=== PATIENT | female | born 1950 | race Caucasian/White ===

== ENCOUNTER 2019-07-14 09:57 | Day surgery (SDC) | payer MEDICARE, OTHER ==
[2019-07-14] VITALS (9 sets, daily range): BP systolic 101–139; BP diastolic 53–66
[~2019-07-14] VITALS: Ht 157.5 cm; Wt 129.4 kg
[2019-07-14] MEDS ORDERED: diphenhydrAMINE 25mg capsule PO PRN (10:35)
[2019-07-14] MEDS ORDERED: normal saline 1,000 ML IV SCH (10:35)
[2019-07-14] MEDS ORDERED: DULO60CA45 PO (10:58)
[2019-07-14] MEDS ORDERED: MONT10TA26 PO (10:58)
[2019-07-14] MEDS ORDERED: FURO-150 PO (10:58)
[2019-07-14] MEDS ORDERED: OMEG1CAP13 PO (10:58)
[2019-07-14] MEDS ORDERED: LEVO112T5 PO (10:58)
[2019-07-14] MEDS ORDERED: IPRA3AMP31 IH (10:58)
[2019-07-14] MEDS ORDERED: FLUT1DIS20 INH (10:58)
[2019-07-14] MEDS ORDERED: Trazodone PO (10:58)
[2019-07-14] MEDS ORDERED: CHOL200077 PO (10:58)
[2019-07-14] MEDS ORDERED: MAGN250T11 PO (10:58)
[2019-07-14] MEDS ORDERED: Lutein PO (10:58)
[2019-07-14] MEDS ORDERED: IPRA4AER IH (10:58)
[2019-07-14] MEDS ORDERED: POTA8CAP20 PO (10:58)
[2019-07-14] MEDS ORDERED: Ibuprofen PO (10:58)
[2019-07-14 11:13] LABS: BASOPHILS % (AUTO) 0.8 % (0-1); EOSINOPHILS # (AUTO) 0.1 X10'3 (0-0.9); EOSINOPHILS % (AUTO) 2.5 % (0-6); HEMATOCRIT 36.4 % (35.0-45.0); HEMOGLOBIN 12.1 g/dl (12.0-16.0); LYMPHOCYTES # (AUTO) 1.2 X10'3 (1.1-4.8); LYMPHOCYTES % (AUTO) 22.8 % (21-51); MEAN CORPUSCULAR HEMOGLOBIN 28.8 PG (27.0-31.0); MEAN CORPUSCULAR HGB CONC 33.3 g/dL (33.0-36.5); MEAN CORPUSCULAR VOLUME 86.5 FL (78-98); MEAN PLATELET VOLUME 8.7 FL (7.4-10.4); MONOCYTES # (AUTO) 0.4 X10'3 (0-0.9); MONOCYTES % (AUTO) 7.5 % (2-12); NEUTROPHILS # (AUTO) 3.4 X10'3 (1.8-7.7); NEUTROPHILS % (AUTO) 66.4 % (42-75); PLATELET COUNT 222 X10'3 (140-440); WHITE BLOOD COUNT 5.1 X10'3 (4.5-11.0)
[2019-07-14 11:22] LABS: ALBUMIN 3.5 G/DL (3.4-5.0); ANION GAP 7 (8-16); BLOOD UREA NITROGEN 11 MG/DL (7-18); BUN/CREATININE RATIO 11.3 (6.6-38.0); CALCIUM 8.8 MG/DL (8.5-10.1); CHLORIDE 108 MMOL/L (99-107); CREATININE 0.97 MG/DL (0.40-0.90); GLUCOSE 116 MG/DL (70-104); MAGNESIUM 1.8 MG/DL (1.5-2.4); POTASSIUM 4.3 MMOL/L (3.5-5.1); SODIUM 142 MMOL/L (135-145); TOTAL CARBON DIOXIDE 26.8 MMOL/L (24-32); eGFR 57 ML/MIN
[2019-07-14] MEDS ORDERED: midazolam 2 mg/2 ml injection ONE ×4 (12:08→12:57)
[2019-07-14] MEDS ORDERED: heparin 1,000unit/ml 10ml vial 10 ML ONE (12:08)
[2019-07-14] MEDS ORDERED: LIDOcaine 1% (10mg/ml)w/preservative injection 20ml MDV ONE (12:08)
[2019-07-14] MEDS ORDERED: iohexol 350 MG/ML 50ML vial IV ONE (12:08)
[2019-07-14] MEDS ORDERED: fentaNYL/PF 50MCG/1 ML 2ML syringe ONE ×2 (12:08→12:51)
[2019-07-14] MEDS ORDERED: iohexol 350MG/ML 100ml bottle IV ONE (12:09)
[2019-07-14] MEDS ORDERED: nitroGLYCERIN-Tridil 50MG/D5W 250 ML IV ONE (12:28)
[2019-07-14] MEDS ORDERED: verapamil 2.5 mg/ml inj IV ONE (12:28)
[2019-07-14] MEDS ORDERED: proCHLORperazine 10 MG/2 ml inj ONE (12:47)
--- NOTE | 2019-07-14 18:41 | NUR ---
VASC BAND REMOVED. CLEANSED SITE WITH NS/AND STERILE GAUZE. NO OOZING FROM SITE. NEW DRSG APPLIED, STERILE 2X2 and tegaderm. Supported with folded 4x4 and rodrigo pt aware that outer drsg may be removed or adjusted for comfort. not required. Addendum: 07/14/19 at 1849 by Ita Aguirre RN Amended: Links added.
== END 2019-07-14 16:35 | disposition home or self-care (01) ==
LOC: SSTAY O 09:57
PROVIDERS: ATTEND Internal Medicine Cardiovascular Disease
DX: R94.39 Abnormal result of other cardiovascular function study (principal); E03.9 Hypothyroidism, unspecified; K21.9 Gastro-esophageal reflux disease without esophagitis; J44.9 Chronic obstructive pulmonary disease, unspecified; I47.1 Supraventricular tachycardia; G47.30 Sleep apnea, unspecified; F32.9 Major depressive disorder, single episode, unspecified; E66.01 Morbid (severe) obesity due to excess calories; Z68.43 Body mass index [BMI] 50.0-59.9, adult; Z90.710 Acquired absence of both cervix and uterus; Z98.890 Other specified postprocedural states; Z87.891 Personal history of nicotine dependence; Z82.49 Family history of ischemic heart disease and other diseases of the circulatory system
CPT/HCPCS: 36415; 80048; 83735; 85025; 85610; 93005; 93458; 99152; 99153; C1769; C1894; J0780; J1644; J2001; J2250; J3010; Q0163; Q9967; A4620; J3490

== ENCOUNTER 2023-03-19 06:12 | Day surgery (SDC) | payer MEDICARE, OTHER ==
[2023-03-12 10:58] LABS: BASOPHILS % (AUTO) 0.6 % (0-1); EOSINOPHILS # (AUTO) 0.1 X10'3 (0-0.9); EOSINOPHILS % (AUTO) 2.4 % (0-6); LYMPHOCYTES # (AUTO) 1.3 X10'3 (1.1-4.8); MEAN CORPUSCULAR HEMOGLOBIN 29.3 PG (27.0-31.0); MEAN CORPUSCULAR HGB CONC 32.7 g/dL (33.0-36.5); MEAN CORPUSCULAR VOLUME 89.6 FL (78-98); MONOCYTES # (AUTO) 0.5 X10'3 (0-0.9); MONOCYTES % (AUTO) 7.8 % (2-12); NEUTROPHILS # (AUTO) 4.1 X10'3 (1.8-7.7); NEUTROPHILS % (AUTO) 68.2 % (42-75); PRE OP HEMATOCRIT 38.1 % (35.0-45.0); PRE OP HEMOGLOBIN 12.4 g/dL (12.0-16.0); PRE OP PLATELET COUNT 235 X10'3 (140-440); RED BLOOD COUNT 4.25 X10'6 (4.20-5.60); RED CELL DISTRIBUTION WIDTH 14.6 % (11.5-14.5)
[2023-03-12 11:06] LABS: ALBUMIN 3.6 G/DL (3.4-5.0); ALBUMIN/GLOBULIN RATIO 1.1 (1.1-1.5); ALKALINE PHOSPHATASE 66 IU/L (46-116); BLOOD UREA NITROGEN 18 MG/DL (7-18); BUN/CREATININE RATIO 16.1 (10.0-20.0); CALCIUM 8.9 MG/DL (8.5-10.1); CHLORIDE 103 MMOL/L (99-107); CREATININE 1.12 MG/DL (0.40-0.90); PRE OP ALT 32 U/L (30-65); PRE OP ANION GAP 2 (8-16); PRE OP AST 31 U/L (10-37); PRE OP BILIRUB, TOTAL 0.3 MG/DL (0.0-1.0); PRE OP GLUCOSE 131 MG/DL (70-104); PRE OP POTASSIUM 4.6 MMOL/L (3.4-5.1); PRE OP SODIUM 138 MMOL/L (135-145); TOTAL CARBON DIOXIDE 33.4 MMOL/L (24-32); TOTAL PROTEIN 6.9 G/DL (6.4-8.2); eGFR 48 ML/MIN
[2023-03-19] VITALS (7 sets, daily range): BP systolic 122–162; BP diastolic 55–79; PULSE 63–76; RESP 13–16; TEMP 98.8; O2SAT 93–100
[~2023-03-19] VITALS: Ht 157.5 cm; Wt 129.8 kg
[~2023-03-19 06:12] MED LIST: DULO60CA59 PO; FLUT1DIS20 INH; FURO-150 PO; IPRA3AMP31 IH; LEVO112T5 PO; MONT-40 PO; POTA8CAP20 PO; TIOT4MIS3 PO; Trazodone PO; albuterol 2.5 MG/3 ML nebule NEB ONE; clindamycin-Cleocin 900mg/D5W 50 ML IV ONE; famotidine 20mg tablet PO ONE; ringers solution, lacted 1,000 ML IV SCH
[2023-03-19] MEDS ORDERED: ringers solution, lacted 1,000 ML IV SCH (07:35)
[2023-03-19] MEDS ORDERED: acetaminophen 1,000mg/100ml IV 100 ML IV PRN (07:35)
[2023-03-19] MEDS ORDERED: morphine 4 MG/ML inj SYRINge IV PRN (07:35)
[2023-03-19] MEDS ORDERED: proCHLORperazine 10 MG/2 ml inj IV PRN (07:35)
[2023-03-19] MEDS ORDERED: ketorolac tromethamine 15mg/ml inj. IV ONE (07:35)
[2023-03-19] MEDS ORDERED: morphine 2 MG/ML inj. syringe IV PRN (07:35)
[2023-03-19] MEDS ORDERED: labetalol 20mg/4ml (5mg/ml) syringe IV PRN (07:35)
[2023-03-19] MEDS ORDERED: HYDROmorphone/PF 0.2 MG/ML SYRINGE IV PRN ×2 (07:35)
[2023-03-19] MEDS ORDERED: meperidine/PF 25mg/ml syringe IV PRN (07:35)
[2023-03-19] MEDS ORDERED: hydrALAZINE 20mg/ml inj. IV PRN (07:35)
[2023-03-19] MEDS ORDERED: ondansetron/PF 4mg/2ml inj IV PRN (07:35)
[2023-03-19] MEDS ORDERED: BUPIVAcaine/PF 2.5 mg/ml (0.25%) 30ml vial ONE (08:32)
[2023-03-19] MEDS ORDERED: fentaNYL/PF 50MCG/1 ML 2ML syringe ONE (08:43)
[2023-03-19] MEDS ORDERED: LIDOcaine 0.5% (5mg/ml) 50ml vial ONE (08:49)
[2023-03-19] MEDS ORDERED: midazolam 1 mg/ML 2ml injection ONE (08:49)
[2023-03-19] MEDS ORDERED: propofol inj 20 ML IV ONE (08:50)
--- NOTE | 2023-03-19 09:10 | NUR ---
Received from OR via [facility] TO [facility] 6, accompanied by Anesthesiologist DR FRAGOSO and report given by Anesthesiolgist. PT PRESENT SWITH 20G LEFT FOREARM, DRESSING ON RIGHT HAND/WRIST. VSS. Addendum: 03/19/23 at 0920 by Chelle Quintanilla RN, RN Amended: Links added.
--- NOTE | 2023-03-19 09:50 | NUR ---
ALL DISCHARGE CRITERIA HAS BEEN MET. VSS, PAIN AT A TOLERABLE LEVEL, VOIDING AND ABLE TO SAFELY AMBULATE AND TRANSFER SELF. IV TAKEN OUT WITHOUT ANY COMPLICATIONS. ALL DISCHARGE INSTRUCTIONS COVERED WITH PATIENT AND ALL QUESTIONS ANSWERED. PATIENT TAKEN OUT VIA WHEELCHAIR TO PERSONAL VEHICLE WHERE FAMILY/FRIEND DROVE PATIENT HOME. Addendum: 03/19/23 at 0955 by Chlele Quintanilla RN, RN Amended: Links added.
== END 2023-03-19 09:50 | disposition home or self-care (01) ==
LOC: PAS 06:12
PROVIDERS: ATTEND Orthopaedic Surgery Hand Surgery
DX: G56.01 Carpal tunnel syndrome, right upper limb (principal); M65.321 Trigger finger, right index finger; M65.331 Trigger finger, right middle finger; J43.9 Emphysema, unspecified; E66.9 Obesity, unspecified; F32.A Depression, unspecified; G47.33 Obstructive sleep apnea (adult) (pediatric); M19.90 Unspecified osteoarthritis, unspecified site; Z87.891 Personal history of nicotine dependence; Z79.2 Long term (current) use of antibiotics; Z79.890 Hormone replacement therapy; Z79.899 Other long term (current) drug therapy; Z90.49 Acquired absence of other specified parts of digestive tract; Z90.710 Acquired absence of both cervix and uterus; Z98.890 Other specified postprocedural states; Z68.43 Body mass index [BMI] 50.0-59.9, adult; Z88.1 Allergy status to other antibiotic agents; Z88.5 Allergy status to narcotic agent; Z88.8 Allergy status to other drugs, medicaments and biological substances; Z82.49 Family history of ischemic heart disease and other diseases of the circulatory system; Z82.5 Family history of asthma and other chronic lower respiratory diseases
CPT/HCPCS: 26055; 36415; 64721; 80053; 82948; 85025; J2250; J2704; J3010; J3490; J7030; J7120; Z7506; Z7512; A4215

== ENCOUNTER 2023-05-24 07:56 | Day surgery (SDC) | payer MEDICARE, OTHER ==
[2023-05-17 14:11] LABS: BASOPHILS % (AUTO) 0.7 % (0-1); EOSINOPHILS # (AUTO) 0.1 X10'3 (0-0.9); LYMPHOCYTES # (AUTO) 1.6 X10'3 (1.1-4.8); LYMPHOCYTES % (AUTO) 23.4 % (21-51); MEAN CORPUSCULAR HGB CONC 32.9 g/dL (33.0-36.5); MEAN CORPUSCULAR VOLUME 88.3 FL (78-98); MEAN PLATELET VOLUME 9.1 FL (7.4-10.4); MONOCYTES # (AUTO) 0.5 X10'3 (0-0.9); NEUTROPHILS # (AUTO) 4.5 X10'3 (1.8-7.7); NEUTROPHILS % (AUTO) 66.9 % (42-75); PRE OP HEMATOCRIT 39.3 % (35.0-45.0); PRE OP HEMOGLOBIN 12.9 g/dL (12.0-16.0); PRE OP PLATELET COUNT 219 X10'3 (140-440); PRE OP WHITE BLOOD COUNT 6.7 10'3 (4.8-10.8); RED BLOOD COUNT 4.44 X10'6 (4.20-5.60); RED CELL DISTRIBUTION WIDTH 14.5 % (11.5-14.5)
[2023-05-17 14:25] LABS: ALBUMIN 3.6 G/DL (3.4-5.0); ALKALINE PHOSPHATASE 64 IU/L (46-116); BLOOD UREA NITROGEN 17 MG/DL (7-18); BUN/CREATININE RATIO 15.3 (10.0-20.0); CALCIUM 8.6 MG/DL (8.5-10.1); CHLORIDE 102 MMOL/L (99-107); CREATININE 1.11 MG/DL (0.40-0.90); PRE OP ALT 22 U/L (30-65); PRE OP ANION GAP 4 (8-16); PRE OP AST 21 U/L (10-37); PRE OP BILIRUB, TOTAL 0.4 MG/DL (0.0-1.0); PRE OP GLUCOSE 102 MG/DL (70-104); PRE OP SODIUM 138 MMOL/L (135-145); TOTAL CARBON DIOXIDE 32.2 MMOL/L (24-32); TOTAL PROTEIN 7.1 G/DL (6.4-8.2); eGFR 48 ML/MIN
[~2023-05-24] VITALS: Ht 157.5 cm; Wt 131.2 kg
[~2023-05-24 07:56] MED LIST changes: +FLAX10007 PO; +GINK60TA2 PO; +LUTEIN PO; +MAGN400T39 PO; +MULT-1085 PO; +TRAZ-256 PO; -Trazodone PO
[2023-05-24] MEDS ORDERED: ondansetron/PF 4mg/2ml inj IV ONE (09:45)
[2023-05-24 10:00] VITALS: BP 136/79; PULSE 75; RESP 16; TEMP 97.8; O2SAT 96
[2023-05-24] MEDS ORDERED: LIDOcaine 1%/PF 5ML 10 MG/ML VIAL ONE (10:32)
[2023-05-24] MEDS ORDERED: BUPIVAcaine/PF 5 mg/ml 10ml ONE (10:32)
[2023-05-24] MEDS ORDERED: fentaNYL/PF 50MCG/1 ML 2ML syringe ONE ×2 (10:50→11:02)
[2023-05-24] MEDS ORDERED: midazolam 1 mg/ML 2ml injection ONE (10:52)
[2023-05-24] MEDS ORDERED: LIDOcaine 1%/PF 5ML 10 MG/ML VIAL IJ ONE (11:02)
[2023-05-24] MEDS ORDERED: BUPIVAcaine/PF 2.5mg/ml (0.25%) 10ml vial IJ ONE (11:02)
[2023-05-24] MEDS ORDERED: propofol inj 20 ML IV ONE (11:10)
[2023-05-24 11:15] VITALS: BP 158/95; PULSE 93; RESP 14; O2SAT 94
[2023-05-24 11:20] VITALS: BP 117/71; PULSE 80; RESP 10; O2SAT 91
[2023-05-24 11:30] VITALS: BP 128/64; PULSE 78; RESP 12; O2SAT 93
[2023-05-24 11:40] VITALS: BP 139/57; PULSE 79; RESP 14; O2SAT 95
== END 2023-05-24 11:45 | disposition home or self-care (01) ==
LOC: PRE-OP 07:56
PROVIDERS: ATTEND Orthopaedic Surgery Hand Surgery
DX: G56.02 Carpal tunnel syndrome, left upper limb (principal); M65.332 Trigger finger, left middle finger; M65.341 Trigger finger, right ring finger; J44.9 Chronic obstructive pulmonary disease, unspecified; G47.33 Obstructive sleep apnea (adult) (pediatric); E03.9 Hypothyroidism, unspecified; E66.9 Obesity, unspecified; Z68.42 Body mass index [BMI] 45.0-49.9, adult; Z87.891 Personal history of nicotine dependence; Z79.899 Other long term (current) drug therapy; Z88.1 Allergy status to other antibiotic agents; Z88.5 Allergy status to narcotic agent; Z88.8 Allergy status to other drugs, medicaments and biological substances; Z98.890 Other specified postprocedural states; Z90.710 Acquired absence of both cervix and uterus; Z82.49 Family history of ischemic heart disease and other diseases of the circulatory system; Z82.5 Family history of asthma and other chronic lower respiratory diseases
CPT/HCPCS: 26055; 36415; 64721; 80053; 82948; 85025; A6222; J2250; J2405; J2704; J3010; J3490; J7030; J7120; Z7506; Z7512; A4215; A6449

== ENCOUNTER 2024-01-26 13:55 | Outpatient (CLI) | payer MEDICARE, OTHER ==
[~2024-01-26 13:55] MED LIST changes: -albuterol 2.5 MG/3 ML nebule NEB ONE; -clindamycin-Cleocin 900mg/D5W 50 ML IV ONE; -famotidine 20mg tablet PO ONE; -ringers solution, lacted 1,000 ML IV SCH
[2024-01-26 14:58] LABS: BASOPHILS % (AUTO) 0.5 % (0-1); EOSINOPHILS # (AUTO) 0.2 X10'3 (0-0.9); EOSINOPHILS % (AUTO) 2.9 % (0-6); LYMPHOCYTES # (AUTO) 1.5 X10'3 (1.1-4.8); LYMPHOCYTES % (AUTO) 23.3 % (21-51); MEAN CORPUSCULAR HEMOGLOBIN 28.8 PG (27.0-31.0); MEAN CORPUSCULAR HGB CONC 32.5 g/dL (33.0-36.5); MEAN CORPUSCULAR VOLUME 88.6 FL (78-98); MEAN PLATELET VOLUME 8.4 FL (7.4-10.4); MONOCYTES # (AUTO) 0.5 X10'3 (0-0.9); MONOCYTES % (AUTO) 7.6 % (2-12); NEUTROPHILS # (AUTO) 4.1 X10'3 (1.8-7.7); NEUTROPHILS % (AUTO) 65.7 % (42-75); PRE OP HEMATOCRIT 38.3 % (35.0-45.0); PRE OP HEMOGLOBIN 12.5 g/dL (12.0-16.0); PRE OP PLATELET COUNT 228 X10'3 (140-440); PRE OP WHITE BLOOD COUNT 6.3 10'3 (4.8-10.8); RED BLOOD COUNT 4.33 X10'6 (4.20-5.60); RED CELL DISTRIBUTION WIDTH 15.2 % (11.5-14.5)
[2024-01-26] MEDS ORDERED: OMEG-166 PO (15:07)
[2024-01-26] MEDS ORDERED: CHOL100024 PO (15:07)
[2024-01-26 15:12] LABS: ALBUMIN 3.6 G/DL (3.4-5.0); ALBUMIN/GLOBULIN RATIO 1.1 (1.1-1.5); ALKALINE PHOSPHATASE 64 IU/L (46-116); BLOOD UREA NITROGEN 16 MG/DL (7-18); BUN/CREATININE RATIO 15.5 (10.0-20.0); CALCIUM 8.7 MG/DL (8.5-10.1); CHLORIDE 102 MMOL/L (99-107); CREATININE 1.03 MG/DL (0.40-0.90); PRE OP ALT 25 U/L (30-65); PRE OP ANION GAP 4 (8-16); PRE OP AST 19 U/L (10-37); PRE OP BILIRUB, TOTAL 0.4 MG/DL (0.0-1.0); PRE OP GLUCOSE 97 MG/DL (70-104); PRE OP POTASSIUM 4.2 MMOL/L (3.4-5.1); PRE OP SODIUM 138 MMOL/L (135-145); TOTAL CARBON DIOXIDE 31.6 MMOL/L (24-32); TOTAL PROTEIN 6.9 G/DL (6.4-8.2); eGFR 52 ML/MIN
== END 2024-01-26 23:59 | disposition home or self-care (01) ==
LOC: PRE-OP 13:55 → EDSTATUS 01-31 08:00
PROVIDERS: ATTEND Orthopaedic Surgery Hand Surgery
DX: Z01.818 Encounter for other preprocedural examination (principal); M65.312 Trigger thumb, left thumb; E03.9 Hypothyroidism, unspecified; E66.9 Obesity, unspecified; J43.9 Emphysema, unspecified; F32.A Depression, unspecified; G47.33 Obstructive sleep apnea (adult) (pediatric); M19.90 Unspecified osteoarthritis, unspecified site; Z86.73 Personal history of transient ischemic attack (TIA), and cerebral infarction without residual deficits; Z87.891 Personal history of nicotine dependence; Z79.2 Long term (current) use of antibiotics; Z79.890 Hormone replacement therapy; Z79.899 Other long term (current) drug therapy; Z90.49 Acquired absence of other specified parts of digestive tract; Z90.710 Acquired absence of both cervix and uterus; Z98.890 Other specified postprocedural states; Z68.43 Body mass index [BMI] 50.0-59.9, adult; Z88.1 Allergy status to other antibiotic agents; Z88.5 Allergy status to narcotic agent; Z88.8 Allergy status to other drugs, medicaments and biological substances; Z82.49 Family history of ischemic heart disease and other diseases of the circulatory system; Z82.5 Family history of asthma and other chronic lower respiratory diseases
CPT/HCPCS: 36415; 80053; 85025; J7120